=== PATIENT | male | born 1940 | race Caucasian/White ===

== ENCOUNTER 2018-07-06 13:28 | Emergency (ER) | payer MEDICARE, OTHER ==
[2018-07-06 13:59] LABS: #Eosinphils 0.2 thou/uL (0.0-0.7); #Lymphocytes 1.4 thou/uL (1.20-3.40); #Monocytes 0.6 thou/uL (0.11-0.59); #Neutrophils 4.5 thou/uL (1.40-6.50); %Basophils 0.6 % (0.0-1.0); %Eosinophils 2.5 % (0.0-10.0); %Lymphocytes 20.7 % (21.0-51.0); %Monocytes 8.9 % (0.0-10.0); %Neutrophils 67.3 % (42.0-75.0); Hemoglobin 13.7 g/dL (14.0-18.0); Mean Corpuscular HGB CONC 32.7 g/dL (32.0-36.0); Mean Corpuscular Hemoglobin 33.2 pg (27.0-31.0); Mean Platelet Volume 8.8 fL (7.4-10.4); Platelet Count 161 thou/uL (130-400); RBC Distribution Width 12.5 % (11.5-14.5); Red Blood Cell (RBC) Count 4.13 mill/uL (4.70-6.10); White Blood Cell (WBC) Count 6.7 thou/uL (4.8-10.8)
[2018-07-06 14:18] LABS: ALT (SGPT) 18 U/L (8-55); AST (SGOT) 25 U/L (5-34); Albumin 3.4 g/dL (3.4-4.8); Alkaline Phosphatase 53 U/L (40-150); Anion Gap 8 mmol/L (10-20); BUN (Urea Nitrogen) 17 mg/dL (8.4-25.7); Bilirubin, Total 0.4 mg/dL (0.2-1.2); Calc. Creatinine Clearance 0 mL/min (70-130); Calcium 8.6 mg/dL (7.8-10.44); Carbon Dioxide 29 mmol/L (23-31); Chloride 106 mmol/L (98-107); Estimated GFR-MDRD 78; Globulin 2.4 g/dL (2.4-3.5); Glucose 129 mg/dL (83-110); Potassium 4.4 mmol/L (3.5-5.1); Protein, Total 5.8 g/dL (5.8-8.1); Sodium 139 mmol/L (136-145)
--- NOTE | 2018-07-06 15:01 | RAD ---
FRONTAL VIEW CHEST: Comparison: 10-19-17 Clinical history: Altered mental status. FINDINGS: There is no lobar consolidation. Mild interstitial prominence of each lung is present. Cardiomediasti nal silhouette is accentuated with portable technique. There is osseous degenerative changes. IMPRESSION: No focal consolidation. POS: [facility]
--- NOTE | 2018-07-06 15:10 | CT ---
CT OF HEAD NONCONTRAST: Indication: Altered mental status. FINDINGS: There is moderate global atrophy with compensatory dilatation of the ventricular system. 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 There is no intracranial hemorrhage, mass effect, or midline shift. 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 There is mild mucosal thickening within the paranasal sinuses. IMPRESSION: 1. There is no acute intracranial abnormality. 2. Global atrophy. 3. Chronic ischemic disease, as well as remote lacunar infarction as discussed above. POS: [facility]
== END 2018-07-06 17:31 | disposition home or self-care (01) ==
LOC: ERS 13:28
DX: G31.9 Degenerative disease of nervous system, unspecified (principal); F02.80 Dementia in other diseases classified elsewhere, unspecified severity, without behavioral disturbance, psychotic disturbance, mood disturbance, and anxiety; I63.81 Other cerebral infarction due to occlusion or stenosis of small artery; I67.82 Cerebral ischemia; Z79.899 Other long term (current) drug therapy
CPT/HCPCS: 36415; 51701; 70450; 71045; 80053; 80061; 80164; 81001; 82248; 84443; 85025; 87086; 96360

== ENCOUNTER 2018-11-15 14:27 | Outpatient (CLI) | payer MEDICARE, MEDICAID, OTHER ==
--- NOTE | 2018-11-15 16:34 | CT ---
CT CHEST WITHOUT IV CONTRAST CT ABDOMEN WITHOUT IV CONTRAST CT PELVIS WITHOUT IV CONTRAST 11/15/18 HISTORY: Weight loss. Dementia. FINDINGS: Absence of IV contrast reduces the sensitivity of the exam for evaluation of the mediastinal, hilar a nd vascular structures and solid organs. Oral contrast was administered. There are vascular calcifications without evidence of aneurysmal dilatation of the thoracoabdominal a lenny. There are changes of aortic valve replacement. No pleural or pericardial effusions are seen. Th ere is a calcified nodule in the lingula. Calcified mediastinal and hilar lymph nodes are also presen t. There are mild dependent changes in the lung bases. No calcified gallstones are seen. Numerous tod cifications seen in the pancreas. No calculi are noted in the kidneys, ureters or the urinary bladder . No hydroureteronephrosis seen on either side. The urinary bladder wall is thickened. The small bowel loops are not abnormally dilated. There is fecal material in the colon and rectum. Th ere is thickening of the wall of the rectosigmoid. There are degenerative changes in the thoracolumba r spine. IMPRESSION: 1. Findings are suspicious for stercoral colitis. 2. Old granulomatous disease. 3. Chronic pancreatitis. 4. No CT evidence of renal calculi or obstruction. 5. Urinary bladder wall thickening. Further evaluation with cystoscopy would be helpful. Called and left a message on Dr. Marc Handy cell phone at 4:14 p.m. Code T POS: [facility]
== END 2018-11-15 14:28 | disposition home or self-care (01) ==
LOC: CT 14:27
PROVIDERS: ATTEND Internal Medicine
DX: R63.4 Abnormal weight loss (principal); K86.1 Other chronic pancreatitis; N32.89 Other specified disorders of bladder
CPT/HCPCS: 71250; 74177